=== PATIENT | male | born 1980 | race Caucasian/White ===

== ENCOUNTER 2018-08-05 15:58 | Emergency (ER) | payer SELFPAY ==
[~2018-08-05] VITALS: Ht 165.1 cm; Wt 64.4 kg
[2018-08-05] MEDS ORDERED: QUET50TA PO (16:20)
[2018-08-05] MEDS ORDERED: LAMO100T2 PO (16:20)
[2018-08-05] MEDS ORDERED: HALOPERIDOL LACTATE INJ 5 MG/ML VIAL ONE (16:26)
[2018-08-05] MEDS ORDERED: LORAZEPAM INJ 2 MG/ML VIAL ONE (16:26)
[2018-08-05] MEDS ORDERED: LORAZEPAM INJ 2 MG/ML VIAL IVP ONE (16:30)
[2018-08-05] MEDS: HALOPERIDOL LACTATE INJ 5 MG/ML VIAL IM ONE (17:12)
[2018-08-05] MEDS: LORAZEPAM INJ 2 MG/ML VIAL IM ONE (17:12)
--- NOTE | 2018-08-05 17:14 | NUR ---
BIB [facility] 60 FROM HOME, GIRLFRIEND CALLED 911 SAYING THAT HE WANTED TO HURT HIMSELF,DENIES SI/HI DURING TRIAGE. PT BIB BY [employer] OFF[employer]ERS. AAOX4, VSS. PT UNCOOPERATIVE, [employer] OFFICER EVONNE PLACED PT ON HOLD. PT SEEN & EVAL'D BY DR. HAYES. MEDICATED PER ERMD ORDER. WILL CONT TO MONITOR.
[2018-08-05 18:05] LABS: BASOPHILS % (AUTO) 0.6 % (0.0-2.0); EOSINOPHILS % (AUTO) 0.7 % (0.0-6.0); HEMATOCRIT 43 % (39-51); HEMOGLOBIN 14.8 g/dL (13.5-17.5); LYMPHOCYTES # (AUTO) 1.6 /CMM (0.8-4.8); LYMPHOCYTES % (AUTO) 32.3 % (20.0-44.0); MEAN CORPUSCULAR HGB CONC 34 g/dl (31.0-36.0); MEAN CORPUSCULAR VOLUME 89 fL (80-96); MONOCYTES # (AUTO) 0.3 /CMM (0.1-1.30); MONOCYTES % (AUTO) 5.5 % (2.0-12.0); NEUTROPHILS # (AUTO) 2.9 /CMM (1.8-8.9); NEUTROPHILS % (AUTO) 60.9 % (43.0-81.0); PLATELET COUNT (AUTO) 127 /CMM (150-450); RED BLOOD CELL COUNT(AUTO) 4.85 MIL/uL (4.5-6.0); WHITE BLOOD COUNT (AUTO) 4.8 K/uL (4.3-11.0)
[2018-08-05 18:11] LABS: CALCIUM, SERUM 8.7 mg/dL (8.5-10.1); CARBON DIOXIDE 24 mmol/L (21-32); CHLORIDE 104 mmol/L (98-107); GLUCOSE 89 mg/dL (74-106); POTASSIUM 3.4 mmol/L (3.5-5.1); SODIUM SERUM 142 mmol/L (136-145); UREA NITROGEN, BLOOD 17 mg/dL (7-18)
[2018-08-05 18:18] LABS: ALANINE AMINOTRANSFERASE 46 U/L (12-78); ALBUMIN 4.2 g/dL (3.4-5.0); ALCOHOL, BLOOD < 3 mg/dL (0-0); ALKALINE PHOSPHATASE 59 U/L (46-116); ASPARTATE AMINOTRANSFERASE 52 U/L (15-37); BILIRUBIN,DIRECT 0.1 mg/dL (0.0-0.2); BILIRUBIN,TOTAL 0.7 mg/dL (0.2-1.0); TOTAL PROTEIN, SERUM 7.8 g/dL (6.4-8.2)
[2018-08-05 18:19] LABS: ACETAMINOPHEN < 2 ug/ml (10-30); SALICYLATE 2.5 mg/dL (2.8-20.0)
--- NOTE | 2018-08-05 18:30 | NUR ---
Patient is resting comfortably in bed with eyes closed. Easily aroused. VSS
--- NOTE | 2018-08-05 18:49 | NUR ---
PLS CALL /GF/FIANCE FOR ANY UPDATES
--- NOTE | 2018-08-05 19:30 | NUR ---
Patient is resting comfortably in bed with eyes closed. Easily aroused. VSS. PT STABLE, SKIN INTACT ON ALL RESTRAINTS SITE. OFFERED BATHROOM & FOOD, DECLINED @ THIS TIME & WENT BACK TO SLEEP. NAD NOTED @ THIS TIME.
--- NOTE | 2018-08-05 22:00 | NUR ---
OFFERED FOOD, PT DECLINED. GIVEN URINAL TO USE BR.
--- NOTE | 2018-08-05 22:00 | NUR ---
Patient is resting comfortably in bed with eyes closed. Easily aroused. VSS. RR EVEN & UNLABORED. REMOVED RESTRAINTS ON RT WRIST & LT ANKLE, SKIN INTACT, NO WOUND OR DISCOLORIZATION NOTED. SITTER @ BS & WILL CONT TO MONITOR.
--- NOTE | 2018-08-05 23:11 | NUR ---
[employer] ETA 20 MINUTES
--- NOTE | 2018-08-06 00:30 | NUR ---
PT AMBULATED WITH A STEADY GAIT. Patient discharged to home in stable condition. Written and verbal after care instructions given. Patient AND PT'S GIRLFRIEND verbalizes understanding of instruction. PT LEFT VIA WC TO THE CAR. VSS. NAD NOTED.
[2018-08-06 00:46] VITALS: BP 154/84
== END 2018-08-06 00:47 | disposition home or self-care (01) ==
LOC: ER 16:02
DX: F28 Other psychotic disorder not due to a substance or known physiological condition (principal); F41.9 Anxiety disorder, unspecified; F31.9 Bipolar disorder, unspecified; F20.9 Schizophrenia, unspecified; Z79.899 Other long term (current) drug therapy
CPT/HCPCS: 36415; 80048; 80076; 80305; 80307; 80329; 85025; 96372 ×2; 99285; G0480; J1630; J2060

== ENCOUNTER 2022-05-13 23:10 | Emergency (ER) | payer OTHER ==
[~2022-05-13] VITALS: Ht 170.2 cm; Wt 79.4 kg
[~2022-05-13 23:10] MED LIST: LAMO100T2 PO; QUET50TA PO
--- NOTE | 2022-05-13 23:23 | NUR ---
[facility] FOR FACIAL INJURY S/P FOUND PT ON THE FLOOR, ADMITTED ON DRINKING ALCOHOL. A, OX4 BUT DROWSY ON TRIAGE. VSS.
--- NOTE | 2022-05-14 01:46 | NUR ---
COVID SWAB SENT TO LAB
--- NOTE | 2022-05-14 01:55 | NUR ---
[facility] CALLED FOR HIGHER LEVEL OF CARE.
[2022-05-14 02:25] LABS: BASOPHILS % (AUTO) 0.1 % (0.0-2.0); EOSINOPHILS % (AUTO) 0.1 % (0.0-6.0); HEMATOCRIT 43 % (39-51); HEMOGLOBIN 13.9 g/dL (13.5-17.5); LYMPHOCYTES # (AUTO) 0.5 K/uL (0.8-4.8); LYMPHOCYTES % (AUTO) 4.8 % (20.0-44.0); MEAN CORPUSCULAR HGB CONC 32 g/dl (31.0-36.0); MEAN CORPUSCULAR VOLUME 89 fL (80-96); MONOCYTES # (AUTO) 0.4 K/uL (0.1-1.30); MONOCYTES % (AUTO) 3.8 % (2.0-12.0); NEUTROPHILS # (AUTO) 10.1 K/uL (1.8-8.9); NEUTROPHILS % (AUTO) 91.2 % (43.0-81.0); PLATELET COUNT (AUTO) 152 K/uL (150-450); RED BLOOD CELL COUNT(AUTO) 4.85 MIL/uL (4.5-6.0)
[2022-05-14 02:35] LABS: CALCIUM, SERUM 8.7 mg/dL (8.5-10.1); CARBON DIOXIDE 27 mmol/L (21-32); CHLORIDE 101 mmol/L (98-107); CREATININE 0.8 mg/dL (0.6-1.3); GLUCOSE 110 mg/dL (74-106); POTASSIUM 3.6 mmol/L (3.5-5.1); SODIUM SERUM 136 mmol/L (136-145); UREA NITROGEN, BLOOD 14 mg/dL (7-18)
[2022-05-14 02:42] LABS: ALCOHOL, BLOOD < 3 mg/dL (0-0)
--- NOTE | 2022-05-14 02:52 | NUR ---
[facility] ETA 0430 am
[2022-05-14] MEDS ORDERED: NICARDIPINE IN DEXTROSE,ISO-OS 200 ML IV ONE (04:02)
[2022-05-14 04:03] VITALS: BP 169/99
--- NOTE | 2022-05-14 04:10 | NUR ---
Cardene 40 mg / 0.9% NS 250 -running at 5 mL/h Start time: 0410 AM, PIV # 18 LAC, port # 1 Infusing while transfer to [facility]
[2022-05-14] MEDS ORDERED: NICARDIPINE HCL 40 MG in IV NS 0.9% 184 ML IV PRN (04:30)
--- NOTE | 2022-05-14 04:35 | NUR ---
spoke to transfer center piyush and report given.
== END 2022-05-14 04:35 | disposition short-term general hospital (02) ==
LOC: ER 23:13
DX: S02.91XA Unspecified fracture of skull, initial encounter for closed fracture (principal); S00.33XA Contusion of nose, initial encounter; I62.02 Nontraumatic subacute subdural hemorrhage; F31.9 Bipolar disorder, unspecified; Z79.899 Other long term (current) drug therapy; Z20.822 Contact with and (suspected) exposure to COVID-19; W01.0XXA Fall on same level from slipping, tripping and stumbling without subsequent striking against object, initial encounter; Y93.89 Activity, other specified; Y92.89 Other specified places as the place of occurrence of the external cause; Y99.8 Other external cause status
CPT/HCPCS: 99291; 72125; 70450; 70486; 96365; 85025; 80048; 36415; 85730; 87426; 80320; A4223; C9803; G0480